=== PATIENT | female | born 1940 | race Caucasian/White ===

== ENCOUNTER 2017-05-18 06:36 | Inpatient (IN) | payer OTHER ==
[2017-05-18] MEDS: KETOROLAC TROMETHAMINE 30 MG/1 ML VIAL IVPUSH SCH ×3 (00:28→17:32)
[~2017-05-18 06:36] MED LIST: ROPIVICAINE 0.2%/MORPH PF/KETOROLAC - 51ML DISP.SYRINGE IA ONE; TRANEXAMIC ACID 1000 MG/10 ML VIAL IVPUSH ONE; VANCOMYCIN 1,000 MG VIAL (RESTRICTED TO ID ONLY) IVPB ONE
[2017-05-18] MEDS ORDERED: PANTOPRAZOLE 40 MG TABLET (FP) PO ONE (06:37)
[2017-05-18] MEDS ORDERED: oxyCODONE HCL 10 MG SUSTAINED ACTING TABLET PO ONE (06:46)
[2017-05-18] MEDS ORDERED: CELECOXIB 200 MG CAPSULE PO ONE (06:46)
[2017-05-18] MEDS ORDERED: ROPIVICAINE 0.2%/MORPH PF/KETOROLAC - 51ML DISP.SYRINGE IA ONE ×2 (06:46→11:15)
[2017-05-18] MEDS ORDERED: CEFAZOLIN 2 GM in DEXTROSE 5%-WATER - 50 ML IVPB ONE (06:46)
[2017-05-18] MEDS ORDERED: TRANEXAMIC ACID 1000 MG/10 ML VIAL IVPUSH ONE ×2 (06:46→10:59)
[2017-05-18] MEDS ORDERED: GABAPENTIN 300 MG CAPSULE (FP) PO ONE (06:46)
[2017-05-18] MEDS ORDERED: ceFAZolin SODIUM 1 GM VIAL ONE ×3 (07:05→10:24)
[2017-05-18] MEDS ORDERED: VANCOMYCIN 1,000 MG VIAL (RESTRICTED TO ID ONLY) ONE (07:05)
[2017-05-18 07:10] VITALS: BMI 30.7
[2017-05-18] MEDS ORDERED: ROPIVACAINE HCL 0.5% 30ML VIAL ONE (07:14)
[2017-05-18] MEDS ORDERED: MIDAZOLAM HCL 2 MG/2 ML SINGLE DOSE VIAL ONE (07:14)
[2017-05-18] MEDS ORDERED: BUPIVACAINE HCL/PF 2.5 MG/ML - 30 ML VIAL IJ ONE (07:17)
--- NOTE | 2017-05-18 07:37 | HP ---
Admitting History and Physical - Admission Chief Complaint: left knee osteoarthritis x years History of Present Illness: 76 year old female presents in regard to her left knee. Longstanding history of left knee osteoarthritis. Patient complains of limited ROM, pain and difficulty ambulating. Patient has failed conservative treatment including PO medication, activity modification and exercise program. At this point patient would like to proceed with a left total knee arthroplasty. History Source: Patient - Past Medical History Cardiovascular: Yes: HTN ...: No - Past Surgical History Additional Past Surgical History: See written H&P - Smoking History Smoking history: Never smoked Have you smoked in the past 12 months: No Aproximately how many cigarettes per day: 0 - Alcohol/Substance Use Hx Alcohol Use: Yes (VERY RARE) Home Medications - Allergies Allergies/Adverse Reactions: Allergies Allergy/AdvReac Type Severity Reaction Status Date / Time No Known Allergies Allergy Verified 05/18/17 07:19 - Home Medications Home Medications: Ambulatory Orders Aspirin [ASA -] 81 mg PO DAILY 03/16/13 Candesartan Cilexetil [Atacand -] 32 mg PO DAILY 03/16/13 Review of Systems - Review of Systems Musculoskeletal: reports: Crepitus (Left knee), Decreased ROM (Left knee), Joint Pain (Left knee), Joint Swelling (Left knee) Physical Examination Vital Signs: Vital Signs Temperature 98.1 F 05/18/17 07:05 Pulse Rate 88 05/18/17 07:05 Respiratory Rate 16 05/18/17 07:05 Blood Pressure 159/74 05/18/17 07:05 O2 Sat by Pulse Oximetry (%) 97 05/18/17 07:19 Constitutional: Yes: Well Nourished, No Distress Eyes: Yes: Conjunctiva Clear HENT: Yes: Atraumatic, Normocephalic Neck: Yes: Supple Cardiovascular: Yes: Regular Rate and Rhythm Respiratory: Yes: Regular Gastrointestinal: Yes: Soft ...Rectal Exam: Yes: Deferred Musculoskeletal: Yes: Joint Stiffness (Left knee), Joint Swelling (Left knee) Assessment/Plan 76 year old female with longstanding left knee osteoarthritis. Patient admits to limited ROM, difficulty ambulating and difficulty completing ADLs. Patient has failed conservative treatment. Proceed with left total knee arthroplasty.
[2017-05-18] MEDS ORDERED: PROPOFOL 20 ML ONE ×2 (08:37→10:02)
[2017-05-18] MEDS ORDERED: ePHEDrine SULFATE 50 MG/1 ML AMPULE ONE (09:08)
[2017-05-18] MEDS ORDERED: VANCOMYCIN 1,000 MG VIAL (RESTRICTED TO ID ONLY) IVPB ONE (10:59)
[2017-05-18] MEDS ORDERED: MAG HYDROX/AL HYDROX/SIMETH 30 ML UNIT-DOSE CUP PO PRN (11:24)
[2017-05-18] MEDS ORDERED: MAGNESIUM HYDROX 2400MG/30ML ORAL SUSPENSION 30 ML CUP PO PRN (11:24)
--- NOTE | 2017-05-18 11:24 | OP ---
Operative Note - Note: Operative Date: 05/18/17 Pre-Operative Diagnosis: left knee OA Operation: left TKA Post-Operative Diagnosis: Same as Pre-op Surgeon: [place] Sim Event Lighting Specialist: Janey Barber Anesthesia: Spinal Estimated Blood Loss (mls): 100
[2017-05-18] MEDS ORDERED: LACTATED RINGERS SOLUTION 1,000 ML IV SCH (11:30)
[2017-05-18] MEDS ORDERED: oxyCODONE HCL 5 MG TABLET PO PRN ×2 (11:41)
[2017-05-18] MEDS ORDERED: ONDANSETRON 4 MG/2 ML VIAL ONE (11:51)
[2017-05-18] MEDS: ONDANSETRON 4 MG/2 ML VIAL IVPB PRN ×2 (11:52→20:19)
[2017-05-18] MEDS: ACETAMINOPHEN 1000 MG/100 ML VIAL (NON FORMULARY) IVPB ONE (11:54)
[2017-05-18] MEDS: traMADol HCL 50 MG TABLET PO SCH (17:33)
[2017-05-18] MEDS: CEFAZOLIN 2 GM/D5W 50 ML IVPB SCH (17:34)
[2017-05-18] MEDS: GABAPENTIN 300 MG CAPSULE (FP) PO SCH (21:35)
[2017-05-18] MEDS: ASCORBIC ACID 500 MG TABLET (FP) PO SCH (21:35)
[2017-05-18] MEDS: SENNOSIDES/DOCUSATE COMBO (SENNA PLUS) TABLET (UD) PO SCH (21:35)
[2017-05-19] MEDS: traMADol HCL 50 MG TABLET PO SCH ×5 (00:29→18:23)
[2017-05-19] MEDS: CEFAZOLIN 2 GM/D5W 50 ML IVPB SCH (01:00)
[2017-05-19] MEDS: KETOROLAC TROMETHAMINE 30 MG/1 ML VIAL IVPUSH SCH ×2 (05:18→07:15)
[2017-05-19] MEDS: ACETAMINOPHEN 1000 MG/100 ML VIAL (NON FORMULARY) IVPB ONE (07:14)
[2017-05-19] MEDS: ASPIRIN 325 MG TABLET PO SCH (08:18)
[2017-05-19 08:26] LABS: MCH 27.4 pg (25.7-33.7); MCHC 33.6 g/dl (32.0-36.0); MEAN CELL VOLUME 81.4 fl (80-96); MEAN PLT VOLUME 11.7 fl (7.5-11.1); PLATELET COUNT 144 K/MM3 (134-434); RDW 13.6 % (11.6-15.6); WHITE BLOOD COUNT 6.1 K/mm3 (4.0-10.8)
[2017-05-19 08:31] LABS: ANION GAP 6 (8-16); CALCIUM 8.6 mg/dl (8.4-10.2); CO2 28 mmol/L (22-28); CREATININE 0.7 mg/dl (0.6-1.3); GLUCOSE,RANDOM 124 mg/dl (74-106)
--- NOTE | 2017-05-19 08:43 | SPEC ---
DATE OF OPERATION: 05/18/2017 PREOPERATIVE DIAGNOSIS: Left knee osteoarthritis. POSTOPERATIVE DIAGNOSIS: Left knee osteoarthritis. PROCEDURE: Left total knee replacement. ATTENDING PHYSICIAN: Russell Last MD PLANIMETER OPERATOR: QASIM Zaragoza ANESTHESIA: Spinal plus sedation. ESTIMATED BLOOD LOSS: 100 mL COMPLICATIONS: None. SPECIMENS: Resected bone was sent for pathology analysis. DISPOSITION: The patient was transferred to the PACU in stable condition. IMPLANTS USED: [place] [employer] size 1 femoral component, size 2 tibial component, 29-mm patellar component, 11-mm posterior-stabilized polyethylene component. INDICATIONS: This is a 76-year-old female who presented to the office complaining of severe bilateral knee pain. The left was more painful than the right. This was a longstanding problem, and she had previously been diagnosed with severe osteoarthritis of both knees and had already failed conservative management and had been indicted for surgery by another surgeon. They sought another opinion and elected to proceed with surgery with me after office consultation. The risks, benefits, and alternatives to the surgery were explained to the patient and her daughter who acted as a wastewater project manager, and the patient elected to proceed with the procedure. DESCRIPTION OF PROCEDURE: On the day of surgery, the patient was taken to the operating room and placed on the OR table. Spinal anesthesia was administered by the anesthesiologist. The patient was then positioned supine on the table and all bony prominences were padded. A nonsterile tourniquet was placed on the proximal thigh. The knee was then prepped and draped in the usual sterile fashion and intravenous antibiotics were given for infection prophylaxis. A surgical time-out was then performed with the team, and the patients identity, procedure, side, availability of implants, and the administration of antibiotics was confirmed. The leg was then elevated and exsanguinated, and the tourniquet was inflated. With the knee flexed, a midline incision was made and carried down through the subcutaneous fat to the underlying retinaculum. A medial parapatellar arthrotomy was performed. This was followed by a subperiosteal dissection of the tissue off the proximal, medial tibia. A portion of fat pad was removed from under the patellar tendon, and a small portion of fat was excised off the distal supracondylar femur. The knee was then flexed further and the anterior horn of the lateral meniscus was released from the midline. Next, the anterior and posterior cruciate ligaments were transected. Osteophytes were removed from both the femur and tibia. Grade 4 changes were noted diffusely throughout the knee. Hohmann retractors were then placed around the distal femur. The starting drill was used to enter the intramedullary canal. The starting point had been chosen by checking the radiographs and anatomy. Proper alignment and intramedullary placement was then confirmed by placing the long narrow caridad into the femur. Next, the distal femoral cutting guide was adjusted to 6 degrees of valgus and pinned to the femur. The bone resection was assessed using an malorie-wing. An approximately 10mm distal cut was made and the cut pieces measured. Once this was complete, the sizing guide was used to determine which size femoral component should be used. Next, the appropriately sized 4-in-1 cutting block was then placed at the correct amount of external rotation and the malorie wing was used to assure that there would be no notching of the anterior cortex of the femur. Once this was done, Hohmann retractors were used to protect the medial and lateral collateral ligaments, and all appropriate bone cuts were made. Attention was then turned to the tibia. Hohmann retractors were used to translate the tibia anteriorly and protect the collateral ligaments. The medial and lateral menisci were removed. The extramedullary tibial alignment guide was then placed and adjusted for rotation, varus/valgus, and slope. The height of the cutting block was adjusted to the level of the desired bone resection and then pinned in place. The proximal tibia was then cut with a saw and the bone was removed and measured. Once this was completed, trial components were placed and the knee was taken through a full range of motion. Soft tissue balance was assessed in both flexion and extension and found to be appropriate. The knee was stable throughout the full range of motion. The knee was then put into extension and the patella everted. The synovium around the patella was circumscribed with electrocautery. A caliper was used to measure the patellar thickness and a saw was then used to resect the patella at the chondro-osseous junction. The cut surface was then sized and drilled for the appropriate patellar button, with care taken to medialize it. A trial patella was then placed and the knee was again taken through a full range of motion. The knee was found to have both good balance and good patellar tracking. All of the components were removed except the tibial base plate. The appropriate instrumentation was used to drill and punch the proximal tibia for the keel of the final component. All bony surfaces were then cleaned with pulsatile lavage and dried. Bone cement was then prepared on the back table, and final components were cemented in place in the usual fashion. Extruded cement was removed. The polyethylene trial was placed, the knee was put into extension, and axial pressure was applied for compression while the cement hardened. The patellar button was similarly cemented into place. Once the cement had hardened, the knee was taken through a full range of motion to assess stability, balance, and patellar tracking. This was found to be optimal and the trial polyethylene was exchanged for the appropriately sized real implant. The wound was then thoroughly irrigated with normal saline. No. 1 Polysorb and 0 VLoc 180 barbed sutures were used to close the arthrotomy. No. 1 Polysorb and 2-0 Polysorb sutures were used in the subcutaneous tissues. The skin was closed using both 3-0 VLoc 90 suture in a running subcuticular fashion and SwiftSet skin adhesive. Once this was completed a sterile Aquacel dressing and compressive Usman-wrap was applied. The tourniquet was then deflated and the patient was awakened and taken to the PACU in stable condition. ADDENDUM: After final implants were placed, a 3-minute dilute Betadine lavage was performed according to the [facility]MAN protocol. After this, the wound was again thoroughly irrigated with normal saline via pulsatile lavage, and wound closure was begun. RUSSELL LAST M.D. [id number]
[2017-05-19] MEDS: MULTIVITAMINS (DAILY MVI) TABLET (FP) PO SCH (09:06)
[2017-05-19] MEDS: PANTOPRAZOLE 40 MG TABLET (FP) PO SCH (09:06)
[2017-05-19] MEDS: CELECOXIB 200 MG CAPSULE PO SCH (09:06)
[2017-05-19] MEDS: ASCORBIC ACID 500 MG TABLET (FP) PO SCH ×2 (09:06→21:47)
[2017-05-19] MEDS: GABAPENTIN 300 MG CAPSULE (FP) PO SCH ×2 (09:06→21:47)
[2017-05-19] MEDS: SENNOSIDES/DOCUSATE COMBO (SENNA PLUS) TABLET (UD) PO SCH ×2 (09:06→21:46)
[2017-05-19] MEDS: CANDESARTAN CILEXETIL PO SCH (09:07)
[2017-05-19] MEDS ORDERED: CANDESARTAN CILEXETIL PO SCH (10:00)
[2017-05-19] MEDS: ONDANSETRON 4 MG/2 ML VIAL IVPB PRN (10:32)
--- NOTE | 2017-05-19 12:43 | PN ---
Progress Note (short form) - Note Progress Note: Pt seen and examined. Doing well. AVSS Selected Entries 05/19/17 05/19/17 05/19/17 00:29 04:58 09:15 Temperature 98.6 F Pulse Rate 80 Respiratory 16 Rate Blood Pressure 102/50 O2 Sat by Pulse 94 L 92 L Oximetry (%) Oxygen Delivery Room Air Room Air Method Laboratory Tests 05/19/17 05/19/17 07:40 07:40 WBC 6.1 Hgb 11.9 Hct 35.3 Plt Count 144 Sodium 134 L Potassium 4.0 Chloride 100 Carbon Dioxide 28 Anion Gap 6 L BUN 15 Creatinine 0.7 Random Glucose 124 H Calcium 8.6 Gen: NAD LLE: c/d/i, NVID A/P 76yo female POD#1 s/p L TKA 1. PT/OOB - WBAT LLE 2. D/C home tomorrow
--- NOTE | 2017-05-19 14:20 | PN ---
Progress Note (short form) - Note Progress Note: Anesthesiology Postop: 76 yo female, POD#1 s/p TKA. Patient doing well. Pain adequately controlled. Tolerating PO. Ambulating and participating in PT. Continue current care.
[2017-05-19] MEDS ORDERED: ACETAMINOPHEN 325 MG TABLET (FP) PO PRN (20:16)
[2017-05-20] MEDS: traMADol HCL 50 MG TABLET PO SCH ×2 (01:24→05:40)
[2017-05-20 06:48] VITALS: BP 113/45; PULSE 93; TEMP 99
[2017-05-20] MEDS: ASPIRIN 325 MG TABLET PO SCH (08:17)
[2017-05-20 08:49] LABS: MCH 27.4 pg (25.7-33.7); MCHC 33.5 g/dl (32.0-36.0); MEAN CELL VOLUME 81.7 fl (80-96); MEAN PLT VOLUME 12.1 fl (7.5-11.1); PLATELET COUNT 155 K/MM3 (134-434); RDW 13.6 % (11.6-15.6); WHITE BLOOD COUNT 8.4 K/mm3 (4.0-10.8)
[2017-05-20 09:07] LABS: ANION GAP 6 (8-16); CALCIUM 8.5 mg/dl (8.4-10.2); CO2 27 mmol/L (22-28); CREATININE 0.8 mg/dl (0.6-1.3); GLUCOSE,RANDOM 126 mg/dl (74-106)
[2017-05-20] MEDS ORDERED: PT OWN MED DRAWER 7, Y5N ONE (09:09)
[2017-05-20] MEDS: SENNOSIDES/DOCUSATE COMBO (SENNA PLUS) TABLET (UD) PO SCH (09:15)
[2017-05-20] MEDS: CELECOXIB 200 MG CAPSULE PO SCH (09:16)
[2017-05-20] MEDS: PANTOPRAZOLE 40 MG TABLET (FP) PO SCH (09:16)
[2017-05-20] MEDS: ASCORBIC ACID 500 MG TABLET (FP) PO SCH (09:16)
[2017-05-20] MEDS: MULTIVITAMINS (DAILY MVI) TABLET (FP) PO SCH (09:16)
[2017-05-20] MEDS: CANDESARTAN CILEXETIL PO SCH (09:17)
[2017-05-20] MEDS: GABAPENTIN 300 MG CAPSULE (FP) PO SCH (09:20)
--- NOTE | 2017-05-20 11:09 | DS ---
Physical Examination Vital Signs: Vital Signs Temperature 99.0 F 05/20/17 06:00 Pulse Rate 93 H 05/20/17 06:00 Respiratory Rate 20 05/20/17 06:00 Blood Pressure 113/45 05/20/17 06:00 O2 Sat by Pulse Oximetry (%) 93 L 05/20/17 06:00 Labs: CBC, BMP 05/20/17 07:59 05/20/17 07:59 Discharge Summary Reason For Visit: OSTEOATHRITIS LEFT KNEE Current Active Problems Osteoarthritis of left knee (Acute) Procedures: Principal: left TKA Hospital Course: Admitted for elective surgery. Procedure performed without complications. Pt received postoperative antibiotic prophylaxis and DVT ppx. Ambulated with physical therapy. Stable for discharge home with outpatient followup. Condition: Stable - Instructions Diet, Activity, Other Instructions: Dr. Sim - Knee Replacement Instructions Keep the Aquacel dressing on until removed by Dr. Sim in 10-14 days - it is antibacterial and waterproof and you can shower with it on. Call the office for a follow-up appointment with Dr. Sim in 10-14 days. [phone] Increase your Aspirin dose from 81mg to 325mg daily for 6 weeks to prevent blood clots in your legs. After 6 weeks go back to taking 81mg per day. Take one Pantoprazole 40mg daily for 6 weeks to protect against heartburn and ulcers. Take Celebrex 200mg once daily for 30 days to reduce swelling and inflammation. Take a stool softener, multivitamin, and extra vitamin C supplement daily For pain: *Mild pain (1-3/10): Take 1 Tramadol tablet every 4 hours as needed. Moderate pain (4-6/10): Take 1 Tramadol tablet and 1 Percocet tablet every 4 hours as needed. Severe pain (7-10/10): Take 1 Tramadol tablet and 2 Percocet tablets every 4 hours as needed. Activity: You can put as much weight on the operative leg as you want. Right after you get home, there will be a physical therapist coming to your house to help you walk around and bend/straighten your knee. After your follow-up appointment, you will be sent for more intensive outpatient physical therapy which will include machines and equipment that the home therapist cannot bring to your house. Always use a walker or cane for balance and to prevent falls. Disposition: [facility]NS/HOME HEALTH CARE - Home Medications Comprehensive Discharge Medication List: Ambulatory Orders Candesartan Cilexetil [Atacand -] 32 mg PO DAILY 03/16/13 Ascorbic Acid [Vitamin C -] 500 mg PO BID tablet 05/19/17 Aspirin [ASA -] 325 mg PO DAILY@0800 tablet 05/19/17 Celecoxib [CeleBREX -] 200 mg PO DAILY #30 tab 05/19/17 Multivitamins [Multivit ([facility] Formulary)] 1 tab PO DAILY tab 05/19/17 Oxycodone HCl/Acetaminophen [Percocet 5-325 mg Tablet] 1 - 2 tab PO Q4H PRN #60 tablet MDD 8 05/19/17 Pantoprazole Sodium [Protonix -] 40 mg PO DAILY #40 tab 05/19/17 Sennosides/Docusate Sodium [Pericolace -] 2 tablet PO BID tablet 05/19/17 Tramadol HCl [Ultram -] 50 mg PO Q4H PRN #90 tablet MDD 6 05/19/17
--- NOTE | 2017-05-20 11:12 | PN ---
Progress Note (short form) - Note Progress Note: Pt seen and examined. Doing well. Selected Entries 05/19/17 05/20/17 05/20/17 22:00 02:00 06:00 Temperature 99.6 F 99.6 F 99.0 F Pulse Rate 100 H 100 H 93 H Respiratory 19 19 19 Rate Blood Pressure 109/40 109/40 113/45 O2 Sat by Pulse 96 93 L Oximetry (%) Oxygen Delivery Room Air Nasal Cannula Method Gen: NAD LLE: c/d/i, NVID A/P 76yo female POD#2 s/p L TKA 1. PT/OOB - WBAT LLE 2. D/C home today
--- NOTE | 2017-05-20 13:27 | PATH ---
Surgical Pathology Report Patient Name: ANNA PEREZ Med. Rec. #: [id number] /Age/Gender: 1940 (Age: 76) / F Account: [id number] Location: [facility] MED-SURG Taken: 05/18/2017 Received: 05/18/2017 Reported: 05/20/2017 Physicians: [place] Sim M.D. Specimen(s) Received LEFT KNEE BONE AND TISSUE Clinical History Left knee osteoarthritis Final Diagnosis BONE AND SOFT TISSUE, LEFT KNEE, REPLACEMENT: DEGENERATIVE JOINT DISEASE. Electronically Signed Ketan Xiong M.D. Gross Description Received in formalin labeled "left knee bone and tissue," is an 11.0 x 10.0 x 1.5 cm aggregate of multiple danielle, irregular portions of bone and soft tissue. The tibial plateau measures 7.1 x 4.6 x 1.5 cm. There are multiple areas of eburnation identified, measuring up to 2.4 cm in greatest dimension. The remaining articular surfaces are danielle-yellow and diffusely granular. The underlying trabecular bone is yellow and hard. [employer] sections are submitted in one cassette, following decalcification. /05/19/2017 saudi05/19/2017
== END 2017-05-20 10:55 | disposition home health service (06) | DRG 302 ==
LOC: FM/S 06:36
PROVIDERS: ADMIT Student in an Organized Health Care Education/Training Program; ATTEND Student in an Organized Health Care Education/Training Program
PROC: 0SRD0J9 Replacement of Left Knee Joint with Synthetic Substitute, Cemented, Open Approach (ICD-10-PCS; principal; 2017-05-18 08:20)
DX: M17.12 Unilateral primary osteoarthritis, left knee (principal); I10 Essential (primary) hypertension
CPT/HCPCS: 36415; 73560-TC-LT; 80048; 85027; 88305-TC; 88311-TC; 94010; 94760; 97116-GP; 97162-GP

== ENCOUNTER 2019-09-01 08:38 | Day surgery (SDC) | payer OTHER ==
[2019-08-31 13:45] VITALS: BMI 35.8
[2019-09-01 11:10] VITALS: TEMP 97.6
[2019-09-01 12:47] VITALS: BP 134/75; PULSE 60
--- NOTE | 2019-09-02 14:32 | PATH ---
Surgical Pathology Report Patient Name: ANNA PEREZ [facility]. Rec. #: [id number] /Age/Gender: 1940 (Age: 78) / F Account: [id number] Location: [facility]-ENDOSCOPY Taken: 09/01/2019 Received: 09/01/2019 Reported: 09/02/2019 Physicians: Dar Fu D.O. Specimen(s) Received A: CECUM POLYP B: RIGHT COLON POLYP C: SIGMOID POLYP Clinical History Right lower abdominal pain Postoperative diagnosis: Colon polyps Final Diagnosis A. CECUM POLYP, POLYPECTOMY: TUBULAR ADENOMA. B. #1 RIGHT COLON POLYP, POLYPECTOMY: TUBULAR ADENOMA. C. SIGMOID POLYP, POLYPECTOMY: TUBULAR ADENOMA. Electronically Signed Will Cox M.D. Gross Description A. Received in formalin, labeled "polyp cecum biopsy" are 2 danielle, irregular portions of soft tissue measuring 0.1 and 0.2 cm. in greatest dimension. The specimens are submitted in toto in one cassette. B. Received in formalin labeled "#1 right colon polyp biopsy," is a 1.3 x 0.9 x 0.4 cm danielle, polypoid portion of soft tissue. Also received within the same container are 3 soft tissue fragments ranging from 0.1-0.4 cm in greatest dimension. The polyp is trisected and the specimen is entirely submitted in 2 cassettes as follows: 1-trisected polyp; 2-separately received soft tissue fragments. C. Received in formalin, labeled "biopsy sigmoid polyp" is a danielle, irregular portion of soft tissue measuring 0.3 cm. in greatest dimension. The specimen is submitted in toto in one cassette. 09/01/201909/01/2019
== END 2019-09-01 12:05 | disposition home or self-care (01) ==
LOC: JASU-ENDO 08:38
PROVIDERS: ATTEND Internal Medicine Gastroenterology
PROC: 0DBF8ZX Excision of Right Large Intestine, Via Natural or Artificial Opening Endoscopic, Diagnostic (ICD-10-PCS; 2019-09-01)
PROC: 0DBN8ZX Excision of Sigmoid Colon, Via Natural or Artificial Opening Endoscopic, Diagnostic (ICD-10-PCS; 2019-09-01)
PROC: 3E0H8GC Introduction of Other Therapeutic Substance into Lower GI, Via Natural or Artificial Opening Endoscopic (ICD-10-PCS; 2019-09-01)
PROC: 0DBH8ZX Excision of Cecum, Via Natural or Artificial Opening Endoscopic, Diagnostic (ICD-10-PCS; principal; 2019-09-01 09:45)
DX: D12.0 Benign neoplasm of cecum (principal); D12.5 Benign neoplasm of sigmoid colon; K64.8 Other hemorrhoids
CPT/HCPCS: 88305-TC

== ENCOUNTER 2021-09-15 18:33 | Emergency (ER) | payer OTHER ==
[2021-09-15 18:51] VITALS: PULSE 65; TEMP 98.5; BMI 34.8
[2021-09-15 19:54] LABS: BASO % 2.9 % (0-2.0); EOS % 2.6 % (0-4.5); HEMATOCRIT 41.9 % (32.4-45.2); HEMOGLOBIN 13.6 GM/dl (10.7-15.3); LYMPH % 12.5 % (8-40); MCHC 32.4 g/dl (32.0-36.0); MEAN CELL VOLUME 83.1 fl (80-96); MEAN PLT VOLUME 9.7 fl (7.5-11.1); MONO % 10.3 % (3.8-10.2); NEUT % 71.7 % (42.8-82.8); PLATELET COUNT 176 10^3/uL (134-434); RBC 5.04 M/mm3 (3.60-5.2); RDW 14.1 % (11.6-15.6); WHITE BLOOD COUNT 4.9 K/mm3 (4.0-10.8)
[2021-09-15 20:09] LABS: ALBUMIN 3.7 g/dl (3.4-5.0); BILIRUBIN,TOTAL 0.5 mg/dl (0.2-1); CALCIUM 8.9 mg/dl (8.5-10); CREATININE 0.7 mg/dl (0.55-1.3); TOT PROT 6.7 g/dl (6.4-8.2)
[2021-09-15 20:28] LABS: ACTIVATED PTT 27.6 SECONDS (25.2-36.5)
[2021-09-15 20:34] LABS: INR 1.11 (0.82-1.09); PROTHROMBIN TIME (PATIENT) 12.3 SEC (10.2-13.0)
[2021-09-15] MEDS ORDERED: CEFTRIAXONE 1 GM in DEXTROSE 5%-WATER - 50 ML IVPB ONE (21:24)
[2021-09-15] MEDS ORDERED: cefTRIAXone SODIUM 1 GM VIAL ONE (21:30)
[2021-09-15 21:55] VITALS: BP 141/73
[2021-09-15 22:44] LABS: BODY FLUID MONOCYTE 24 %; BODYL FLD EOSINOPHIL 2 %
== END 2021-09-15 21:59 | disposition home or self-care (01) ==
LOC: FER 18:33
DX: M25.562 Pain in left knee (principal); X50.1XXA Overexertion from prolonged static or awkward postures, initial encounter
CPT/HCPCS: 36415; 73560-TC-LT-FY; 80053; 82945; 83615; 84560; 85025; 85379; 85610; 85651; 85730; 86140; 87070; 87075; 87205; 89060; 93971-TC; 99285-25

== ENCOUNTER 2021-09-24 04:41 | Day surgery (SDC) | payer OTHER ==
[2021-09-23 13:12] VITALS: BMI 33.7
[2021-09-24 09:49] VITALS: BP 135/49; PULSE 70; TEMP 98
[2021-09-24 10:26] LABS: BLOOD UREA NITROGEN 8.3 mg/dL (7-18); CALCIUM 8.7 mg/dL (8.5-10.1); MAGNESIUM 2.1 mg/dL (1.8-2.4)
[2021-09-24 10:29] LABS: CREATININE 0.6 mg/dL (0.55-1.3)
== END 2021-09-24 10:38 | disposition home or self-care (01) ==
LOC: JASU-ENDO 04:41
PROVIDERS: ATTEND Internal Medicine Gastroenterology
PROC: 0DBL8ZX Excision of Transverse Colon, Via Natural or Artificial Opening Endoscopic, Diagnostic (ICD-10-PCS; principal; 2021-09-24 11:00)
DX: Z12.11 Encounter for screening for malignant neoplasm of colon (principal); Z86.010 Personal history of colon polyps; K57.30 Diverticulosis of large intestine without perforation or abscess without bleeding; D12.3 Benign neoplasm of transverse colon; K64.8 Other hemorrhoids
CPT/HCPCS: 36415; 80048; 83735; 88305-TC

== ENCOUNTER 2022-10-14 07:15 | Day surgery (SDC) | payer OTHER ==
[2022-10-06 14:42] VITALS: BMI 33.9
[2022-10-14] MEDS ORDERED: ceFAZolin SODIUM 1 GM VIAL ONE ×2 (07:50→09:41)
[2022-10-14] MEDS ORDERED: THROMBIN (BOVINE) 5,000 UNIT VIAL TP ONE (07:51)
[2022-10-14] MEDS ORDERED: MIDAZOLAM HCL 2 MG/2 ML SINGLE DOSE VIAL ONE (09:25)
[2022-10-14] MEDS ORDERED: ROPIVACAINE HCL 0.5% 30ML VIAL ONE (09:25)
[2022-10-14] MEDS ORDERED: DEXAMETHASONE SOD PHOSPHATE 4 MG/1 ML VIAL ONE ×2 (09:26→10:26)
[2022-10-14] MEDS ORDERED: ONDANSETRON 4 MG/2 ML VIAL ONE ×2 (09:26→10:26)
[2022-10-14] MEDS ORDERED: CELECOXIB 200 MG CAPSULE PO ONE (09:30)
[2022-10-14] MEDS ORDERED: ONDANSETRON 4 MG/2 ML VIAL IVPUSH PRN (09:30)
[2022-10-14] MEDS ORDERED: CEFAZOLIN 2 GM in DEXTROSE 5%-WATER - 50 ML IVPB ONE (09:30)
[2022-10-14] MEDS ORDERED: TRANEXAMIC ACID 1000 MG/10 ML VIAL IVPUSH ONE (09:30)
[2022-10-14] MEDS ORDERED: BUPIVICAINE 0.25%/MORPH PF/KETOROLAC - 51ML DISP.SYRINGE IA ONE ×2 (09:30→10:42)
[2022-10-14] MEDS ORDERED: LACTATED RINGERS SOLUTION 1,000 ML IV SCH (09:30)
[2022-10-14] MEDS ORDERED: TRANEXAMIC ACID 1000 MG/10 ML VIAL ONE ×2 (09:41→11:01)
[2022-10-14] MEDS ORDERED: PROPOFOL 20 ML ONE (09:42)
[2022-10-14] MEDS ORDERED: SUCCINYLCHOLINE CHLORIDE 200 MG/10 ML SYRINGE ONE (09:42)
[2022-10-14] MEDS ORDERED: KETOROLAC TROMETHAMINE 30 MG/1 ML VIAL ONE (10:48)
[2022-10-14] MEDS ORDERED: oxyCODONE HCL 5 MG TABLET PO PRN ×2 (11:43)
[2022-10-14] MEDS ORDERED: ACETAMINOPHEN 1000 MG/100 ML BAG IVPB ONE (12:00)
[2022-10-14] MEDS: PANTOPRAZOLE 40 MG TABLET PO SCH (17:52)
[2022-10-14] MEDS: SENNOSIDES/DOCUSATE COMBO (SENNA PLUS) TABLET (UD) PO SCH ×2 (17:52→21:00)
[2022-10-14] MEDS: LOSARTAN POTASSIUM 50 MG TABLET PO SCH (17:52)
[2022-10-14] MEDS: DORZOLAMIDE 2% HCL OPHTHALMIC SOLUTION 10 ML BOTTLE OU SCH ×2 (17:53→21:01)
[2022-10-14] MEDS: MULTIVITAMINS (DAILY MVI) TABLET (FP) PO SCH (17:53)
[2022-10-14] MEDS: KETOROLAC TROMETHAMINE 30 MG/1 ML VIAL IVPUSH SCH ×2 (17:53→18:13)
[2022-10-14] MEDS: CEFAZOLIN SODIUM 2 GM in DEXTROSE 5%-WATER 100 ML IVPB SCH (18:13)
[2022-10-14 19:56] VITALS: RESP 18
[2022-10-14] MEDS: ACETAMINOPHEN 500 MG TABLET (FP) PO SCH (20:51)
[2022-10-15] MEDS: CEFAZOLIN SODIUM 2 GM in DEXTROSE 5%-WATER 100 ML IVPB SCH (01:27)
[2022-10-15] MEDS: ACETAMINOPHEN 500 MG TABLET (FP) PO SCH ×2 (01:27→09:26)
[2022-10-15] MEDS ORDERED: MAGNESIUM HYDROX 2400MG/30ML ORAL SUSPENSION 30 ML CUP PO ONE (06:39)
[2022-10-15] MEDS ORDERED: ASPIRIN 325 MG TABLET PO SCH (08:00)
[2022-10-15] MEDS: LOSARTAN POTASSIUM 50 MG TABLET PO SCH (09:28)
[2022-10-15] MEDS: MULTIVITAMINS (DAILY MVI) TABLET (FP) PO SCH (09:28)
[2022-10-15] MEDS: PANTOPRAZOLE 40 MG TABLET PO SCH (09:28)
[2022-10-15] MEDS: SENNOSIDES/DOCUSATE COMBO (SENNA PLUS) TABLET (UD) PO SCH (09:29)
[2022-10-15 09:36] VITALS: BP 154/69; PULSE 60; TEMP 98.2
== END 2022-10-15 10:00 | disposition home health service (06) ==
LOC: FASUSAT 07:15 → FM/S 12:38 → FASUSAT 10-15 10:00
PROVIDERS: ATTEND Orthopaedic Surgery
PROC: 8E0Y0CZ Robotic Assisted Procedure of Lower Extremity, Open Approach (ICD-10-PCS; 2022-10-14)
PROC: 0SRC0L9 Replacement of Right Knee Joint with Medial Unicondylar Synthetic Substitute, Cemented, Open Approach (ICD-10-PCS; principal; 2022-10-14 10:07)
DX: M17.11 Unilateral primary osteoarthritis, right knee (principal); I10 Essential (primary) hypertension; J44.9 Chronic obstructive pulmonary disease, unspecified; K21.9 Gastro-esophageal reflux disease without esophagitis
CPT/HCPCS: 20985; 27446; C1776; S2900; 73560-TC-RT-FY; 94760; 97010-GP; 97116-GP; 97162-GP; C1889

== ENCOUNTER 2023-05-25 20:07 | Emergency (ER) | payer OTHER ==
[2023-05-25 20:16] VITALS: BP 153/76; PULSE 63; RESP 16; TEMP 97.9; BMI 28.3
== END 2023-05-25 21:29 | disposition home or self-care (01) ==
LOC: FER 20:07
DX: S05.12XA Contusion of eyeball and orbital tissues, left eye, initial encounter (principal); W01.198A Fall on same level from slipping, tripping and stumbling with subsequent striking against other object, initial encounter
CPT/HCPCS: 70450-TC; 70486-TC; 72125-TC; 99284-25